=== PATIENT | male | born 1960 | race African-American/Black ===

== ENCOUNTER 2019-08-31 09:04 | Outpatient (CLI) | payer BC, MEDICARE, SELFPAY ==
--- NOTE | 2019-08-31 09:35 | ECG_ITS ---
Measurements Intervals [place] Rate: 53 P: -16 [place]: 191 QRS: -31 QRSD: 102 T: 5 QT: 420 QTc: 395 Interpretive Statements SINUS BRADYCARDIA LEFT AXIS DEVIATION CANNOT RULE OUT SEPTAL INFARCT, AGE INDETERMINATE ABNORMAL ECG Electronically Signed On 08-31-2019 11:16:09 CERTIFIED PEST CONTROL TECHNICIAN by Rasheed Pringle D.O.
[2019-08-31 10:01] LABS: Prothrombin Time 12.8 Seconds (11.1-14.7)
[2019-08-31 10:09] LABS: Blood Urea Nitrogen 13 mg/dL (9-20); Calcium 9.3 mg/dL (8.4-10.2); Carbon Dioxide 26 mmol/L (22-30); Chloride 99 mmol/L (98-107); Estimated Glomerular Filt Rate > 60; Glucose 132 mg/dL (75-110); Potassium 3.8 mmol/L (3.4-5.0); Sodium 141 mmol/L (137-145)
== END 2019-08-31 09:05 | disposition home or self-care (01) ==
PROVIDERS: Visit Provider Anesthesiology
DX: N21.0 Calculus in bladder (principal); E11.9 Type 2 diabetes mellitus without complications; I10 Essential (primary) hypertension; R00.1 Bradycardia, unspecified; I25.2 Old myocardial infarction; R94.31 Abnormal electrocardiogram [ECG] [EKG]; Z79.899 Other long term (current) drug therapy; Z79.82 Long term (current) use of aspirin; Z79.84 Long term (current) use of oral hypoglycemic drugs
CPT/HCPCS: 36415; 80048; 85610; 85730; 93005

== ENCOUNTER 2019-09-05 01:30 | Day surgery (SDC) | payer BC, MEDICARE, SELFPAY ==
[2019-08-26 13:05] VITALS: BMI 31.3
--- NOTE | 2019-09-02 07:41 | PM.HPGS ---
History of Present Illness History of Present Illness Consent: Risks, benefits, and alternatives have been discussed and questions answered. Patient agrees to proceed with procedure. Chief complaint: Kidney Stones Narrative: Casimiro Wilhelm is a 59 year old male who is s/p robotic prostatectomy in 05/2016 recently evaluated for gross hematuria and found to have 1.5cm bladder stone on CT-abd/pelvis. He denies recurrent UTI. Review of Systems Constitutional: Constitutional: Denies chills, Denies fatigue, Denies fever(s) and Denies headache(s) Eyes: Eyes: Denies blurry vision ENT: Denies vertigo, Denies dizziness, Denies headache(s) and Denies sore throat Cardiovascular: Cardiovascular: Denies chest pain, Denies syncope, Denies lightheadedness, Denies palpitations, Denies dyspnea and Denies dyspnea on exertion Respiratory: Respiratory: Denies hemoptysis, Denies dyspnea and Denies dyspnea on exertion Gastrointestinal: Gastrointestinal: Denies melena, Denies bloating, Denies hematochezia, Denies change in bowel habits, Denies change in stool character, Denies constipation, Denies diarrhea and Denies vomiting Genitourinary: Genitourinary: Denies hematuria, Denies dysuria, Denies testicular pain, Denies urinary frequency, Denies urinary hesitancy and Denies urinary urgency Integumentary/Breasts: Skin/Breast: Denies pruritus, Denies lesions and Denies rash Neurologic: Denies confusion, Denies vertigo, Denies dizziness, Denies syncope and Denies headache(s) Psychiatric: Psychiatric: Denies anxiety, Denies change in appetite and Denies confusion Endocrine: Endocrine: Denies fatigue and Denies palpitations PMFSH Social History Social History Gender identity (if verbalized by the patient): Male Meds Home Medications and Allergies Home Medications Medication Instructions Recorded Confirmed Type amlodipine 10 mg PO DAILY 08/26/19 08/26/19 History aspirin [Kamille Chewable Aspirin] 81 mg PO DAILY 08/26/19 08/26/19 History atorvastatin [Lipitor] 20 mg PO HS 08/26/19 08/26/19 History dicyclomine 20 mg PO TID 08/26/19 08/26/19 History doxazosin 2 mg PO HS 08/26/19 08/26/19 History insulin detemir U-100 [Levemir 20 unit SUBCUT HS 08/26/19 08/26/19 History U-100 Insulin] lisinopril 40 mg PO DAILY 08/26/19 08/26/19 History metformin 500 mg PO BID 08/26/19 08/26/19 History nebivolol [Bystolic] 20 mg PO HS 08/26/19 08/26/19 History nitroglycerin 0.3 mg SUBLINGUAL Q5M PRN 08/26/19 08/26/19 History omeprazole 40 mg PO DAILY 08/26/19 08/26/19 History oxybutynin chloride 5 mg PO HS 08/26/19 08/26/19 History ranolazine 500 mg PO Q12H 08/26/19 08/26/19 History sertraline 100 mg PO DAILY 08/26/19 08/26/19 History spironolacton-hydrochlorothiaz 1 tablet PO DAILY 08/26/19 08/26/19 History sucralfate 1 g PO DAILY 08/26/19 08/26/19 History tamsulosin 4 mg PO DAILY 08/26/19 08/26/19 History Exam Const: General: healthy appearing, comfortable, no acute distress and well developed; No confusion Nutritional Appearance: well nourished Orientation/consciousness: patient oriented x3 and No confusion HENMT: Head: normocephalic and atraumatic Ears: external ears normal Face and sinus: normal facial exam Mouth: Yes lip normal Teeth and gingiva: dentition normal Eyes: General: appearance normal, both eyes and all related structures Alignment and Position: alignment normal Eyelids: eyelids normal Cornea: corneas normal Pupils: Equal, round and reactive pupils present EOM: EOMs intact bilaterally Neck: Neck: normal visual inspection, full ROM and no JVD Chest: Chest palpation & inspection: normal inspection of the chest Resp: Effort & Inspection: normal respiratory effort and no use of accessory muscles Auscultation: clear to auscultation bilaterally Cardio: Jugular venous distension: no JVD Rate: regular rate Rhythm: regular rhythm GI: Inspection: normal to inspection GI Palp: N
[2019-09-05] VITALS (7 sets, daily range): BP systolic 109–155; BP diastolic 63–86; PULSE 57–73; RESP 17–20; TEMP 36.5–36.6; O2SAT 97–100
--- NOTE | 2019-09-05 06:50 | WPDHPUPDATE1 ---
History and Physical Update Update Date/Time: 09/05/19 06:50 History and Physical has been reviewed, including an updated exam of the patient. There are NO changes in the patient's condition. Risks, benefits, and alternatives have been discussed and questions answered. Patient agrees to proceed with procedure.
[2019-09-05] MEDS: LACTATED RINGERS 1,000 ML 30 ML IV CONT ×2 (10:39→12:54)
[2019-09-05 10:41] LABS: Glucose Point of Care 96 (65-105)
--- NOTE | 2019-09-05 11:00 | WPDANESEPPF ---
Anes - Initial Pre Proc Eval Procedure: Operation Date: 09/05/19 12:15 Proposed Procedures p Cystoscopy, Extraction Of Bladder Stone - Matthew Segovia MD s Holmium Laser Lithotripsy - Matthew Segovia MD Date/Time: 09/05/19 11:00 Surgeon: Matthew Segovia MD Pre Op Diagnosis: Kidney Stones Patient Data Age: 59 Gender: M Height: 5 ft 10 in Weight: 95.7 kg Last Vital Signs Temp 36.6 C 09/05/19 10:44 Pulse 57 L 09/05/19 10:44 Resp 20 09/05/19 10:44 BP 137/79 09/05/19 10:44 Pulse Ox 100 09/05/19 10:44 Allergies Allergy/AdvReac Type Severity Reaction Status Date / Time banana Allergy Severe Swelling Verified 09/05/19 10:43 of Lip/Tongue/Throat nut - unspecified Allergy Intermediate Nose Bleed Verified 09/05/19 10:43 Home Medications Medication Instructions Recorded Confirmed Type amlodipine 10 mg PO DAILY 08/26/19 09/05/19 History aspirin [Kamille Chewable Aspirin] 81 mg PO DAILY 08/26/19 09/05/19 History atorvastatin [Lipitor] 20 mg PO HS 08/26/19 09/05/19 History dicyclomine 20 mg PO TID 08/26/19 08/26/19 History doxazosin 2 mg PO HS 08/26/19 08/26/19 History insulin detemir U-100 [Levemir 20 unit SUBCUT HS 08/26/19 08/26/19 History U-100 Insulin] lisinopril 40 mg PO DAILY 08/26/19 08/26/19 History metformin 500 mg PO BID 08/26/19 09/05/19 History nebivolol [Bystolic] 20 mg PO HS 08/26/19 09/05/19 History nitroglycerin 0.3 mg SUBLINGUAL Q5M PRN 08/26/19 08/26/19 History omeprazole 40 mg PO DAILY 08/26/19 08/26/19 History oxybutynin chloride 5 mg PO HS 08/26/19 08/26/19 History ranolazine 500 mg PO Q12H 08/26/19 09/05/19 History sertraline 100 mg PO DAILY 08/26/19 09/05/19 History spironolacton-hydrochlorothiaz 1 tablet PO DAILY 08/26/19 08/26/19 History sucralfate 1 g PO DAILY 08/26/19 08/26/19 History tamsulosin 4 mg PO DAILY 08/26/19 09/05/19 History Laboratory Tests 09/05/19 10:38 POC Capillary Glucose 96 mg/dl mg/dl (65-105) Patient hx anesthesia problems: none Family hx anesthesia problems: none PMFSH Past Medical History Medical History Anxiety Diabetes GERD (gastroesophageal reflux disease) Hyperlipidemia Hypertension Social History Social History Gender identity (if verbalized by the patient): Male Anes - Eval Final PreProcedure Day of Procedure 09/05/19 11:00 Patient weight: obese Heart: regular rate and rhythm Lungs: clear to auscultation Airway: Mallampati scale class II Neurological: alert and oriented Last oral intake: >/= 8 hours ASA classification: III Emergent: no Anesthetic plan: proceed Anesthesia type and monitoring: general LMA and standard monitoring Informed Consent: The patient's anesthetic plan and its attendant risks and benefits were discussed with the patient/family/POA. Questions were solicited and answers provided to the satisfaction of the patient/family/POA.
[2019-09-05] MEDS: ceFAZolin 2 GM/D5W 50 ML 2 GM/50 ML BAG IVPB (11:52)
--- NOTE | 2019-09-05 13:08 | P.OP_ITS ---
Procedure Note - Detailed Date of procedure: 09/05/19 Pre-op diagnosis: Kidney Stones Post-op diagnosis: same Procedure performed: Laser lithotripsy/extraction bladder stone Description of procedure: The patient is brought to the operative suite where he was prepped and draped in a routine sterile fashion while in the dorsal lithotomy position after the uneventful induction of a general anesthetic. A 21F rigid cystoscope was placed in his bladder. He has no urethral strictures but and evidence of prior TURP. He has a[no median lobe enlargement with an estimated prostatic urethral length of approximately 1.5cm. He has a bladder calculi measuring approximately 5-6cm each . Using a 1000 micron holmium laser fiber laser these stones are fractured into smaller particles. The particles are evacuated through a the cystoscope sheath using both the [employer] evacuator and by direct extraction with the loop electrode. There is no significant hematuria so I opted not to leave an indwelling catheter. The patient was taken to the recovery room having tolerated the procedure well. Anesthesia: GLMA Surgeon: Matthew Segovia MD Estimated blood loss (mL): 0 Drains: No Packing: No Pathology: yes Complications: No immediate complications Condition: stable Disposition: PACU
[2019-09-05 13:10] LABS: Glucose Point of Care 119 (65-105)
--- NOTE | 2019-09-05 13:52 | SUR.PHASEII ---
1340; PT AWAKE AND ALERT. TALKATIVE. SPOUSE AT BEDSIDE.
== END 2019-09-05 14:30 | disposition home or self-care (01) ==
PROVIDERS: PCP Family Medicine; Visit Provider Urology
PROC: (CPT 52352; principal; 2019-09-05 12:15)
PROC: (CPT 52317; 2019-09-05 12:15)
DX: N21.0 Calculus in bladder (principal); I10 Essential (primary) hypertension; E78.5 Hyperlipidemia, unspecified; E11.9 Type 2 diabetes mellitus without complications; K21.9 Gastro-esophageal reflux disease without esophagitis; F41.9 Anxiety disorder, unspecified; Z79.84 Long term (current) use of oral hypoglycemic drugs; Z79.4 Long term (current) use of insulin; Z79.82 Long term (current) use of aspirin; E66.9 Obesity, unspecified; Z68.30 Body mass index [BMI] 30.0-30.9, adult
CPT/HCPCS: 52317; 82365; 88300; A9270; J0690; J2250; J2370; J2405; J2704; J3010; J7120

== ENCOUNTER 2025-05-12 12:26 | Outpatient (CLI) | payer MEDICARE, BC, SELFPAY ==
--- NOTE | ~2025-05-12 | PE_ITS ---
EXAMINATION: PET_PETPSMAST_PT DATE: 05/12/2025 15:34 INDICATION: Prostate cancer. TECHNIQUE: 5.518 mCi of Ga-68 gozetotide was administered intravenously. Low dose computed tomography (CT) images were acquired from the base of the brain to the proximal thighs for attenuation correction and anatomic localization. Automated exposure control was employed. Dose-length product (DLP) was 1166 mGy- cm. Positron emission tomography (PET) images were acquired in the same distribution. COMPARISON: CT abdomen and pelvis 07/29/2019 FINDINGS: Head/neck: There are no pathologically enlarged lymph nodes. Chest: There is no pneumonia or pleural effusion. The heart size is normal. No pericardial effusion. There is bilateral gynecomastia. Abdomen/pelvis/proximal thighs: A calcifications in the liver is consistent with old granulomatous disease. The gallbladder, spleen, pancreas, adrenal glands, and kidneys are normal. There is diverticulosis of the colon without evidence of diverticulitis. The appendix is normal. There are changes of prostatectomy. There are no pathologically enlarged lymph nodes. There is no free intraperitoneal fluid. There is no osseous malignancy. IMPRESSION: 1. No evidence of metastatic disease. Reviewed, dictated and finalized at location E.
--- OUTSIDE RECORDS SUMMARY | 2025-05-12 13:47 | XMS_ITS | Encounter Summary ---
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 Historical Provider [facility]YAL[facility] Final Result * CARDIOLOGY REPORT (02/11/2016 12:00 AM CDT) Anatomical Region Laterality Modality Other Narrative 02/11/2016 12:00 AM CDT Ordered by an unspecified provider. us Historical Provider [facility] ROHIT AYALA Final Result documented in this encounter Visit Diagnoses Not on filedocumented in this encounter Care Teams Patrol Lady Relationship Specialty Start Date End Date Skip Salinas MD PCP - General Family Medicine 07/17/18 Aron Juarez MD Cluster Bore Operator Cardiology 06/25/21 documented as of this encounter
--- OUTSIDE RECORDS SUMMARY | 2025-05-12 13:47 | XMS_ITS | Clinical Summary ---
Author Organization [facility] Address [address] [place] [address] Care Team Providers Care Acidizer Water Well Name Role Phone Skip Salinas MD Primary Care Provider [phone] Yifan Najera MD, Quinn Unavailable [phone] Allergies Active Allergy Reactions Criticality Noted Date Comments Banana Itching,Swelling 07/21/2015 Tongue itches and swells Denies latex allergy Lisinopril Anaphylaxis High 12/09/2020 Nuts Itching,Swelling 12/09/2020 Can eat peanut and macadamia but allergic to all others Medications aspirin EC (ASPIRIN EC) 81 MG tablet Take 1 tablet (81 mg total) by mouth daily. Active dicyclomine 20 MG tablet Take 1 tablet (20 mg total) by mouth 2 (two) times daily. Active omeprazole 40 MG capsule Take 1 capsule (40 mg total) by mouth daily. Active ranolazine ER 500 MG 12 hr tablet Take 1 tablet (500 mg total) by mouth 2 (two) times daily. Active sertraline 100 MG tablet Take 1.5 tablets (150 mg total) by mouth daily. Active spironolactone- hydroCHLOROthia zide 25-25 MG tablet Take 1 tablet by mouth daily. Active amLODIPine 10 MG tablet Take 1 tablet (10 mg total) by mouth daily. At noon Active hydrALAZINE 25 MG tablet Take 1 tablet (25 mg total) by mouth 3 (three) times daily. 0 Active EPINEPHrine 0.3 MG/0.3ML injection Inject 0.3 mg into the muscle as needed for Anaphylaxis. 0 Active magnesium oxide 400 MG tablet Take 1 tablet (400 mg total) by mouth daily. 1 Active atorvastatin 20 MG tablet Take 1 tablet (20 mg total) by mouth nightly at bedtime. Active nebivolol (BYSTOLIC) 5 MG tablet Take 4 tablets (20 mg total) by mouth nightly. Active metFORMIN 500 MG tablet Take 1 tablet (500 mg total) by mouth 2 (two) times daily. 0 Active oxybutynin XL 10 MG 24 hr tablet Take 1 tablet (10 mg total) by mouth nightly. 0 Active insulin detemir 100 UNIT/ML flextouch PEN Inject 30 Units into the skin nightly. Active nitroglycerin 0.[address] 1 tablet (0.4 mg total) under the tongue as needed. 1 Active diazePAM 5 MG tablet Take 1 tablet (5 mg total) by mouth every 8 (eight) hours as needed. Active traZODone 50 MG tablet Take 1 tablet (50 mg total) by mouth nightly. 0 Active PREVIDENT 5000 PLUS 1.1 % Cream BRUSH WITH TOOTHPASTE BEFORE BED. DO NOT EAT OR DRINK ANYTHONG FOR 1/2 HOUR AFTER BRUSHING 2 Active multi vitamin/mineral s (CENTRUM ADULTS) tablet 2 Active hydrocortisone 2.5 % ointment APPLY TOPICALLY TWICE DAILY FOR 2 TO 3 WEEKS 1 Active albuterol sulfate HFA 108 (90 Base) MCG/ACT inhaler INHALE 2 PUFFS EVERY 4 HOURS NEEDED FOR WHEEZING OR SHORTNESS OF BREATH 1 Active doxazosin (CARDURA) 4 MG tablet Take 1 tablet (4 mg total) by mouth nightly. 4 Active Fluticasone-Ume clidin-Vilant (TRELEGY ELLIPTA) 200-62.5-25 MCG/ACT AEROSOL POWDER, BREATH ACTIVATED Inhale 1 puff into the lungs daily. 5 Active montelukast (SINGULAIR) 10 MG tablet Take 1 tablet (10 mg total) by mouth daily. 4 Active tirzepatide (MOUNJARO) 2.5 MG/0.5ML injection Inject 2.5 mg into the skin every 7 days. Taken on Mondays 4 Active HYDROcodone-jarrod taminophen (NORCO) 7.5-325 MG tabletIndicatio ns:Acute Pain < 7 Day Supply Take 1 tablet by mouth every 6 (six) hours as needed. Indications: Acute Pain < 7 Day Supply 15 tablet 5 Active naloxone (NARCAN) 4 MG/0.1ML nasal spray 1 spray by Nasal route as needed for Opioid reversal. may repeat every 2 to 3 minutes in alternating nostrils until medical assistance becomes available 1 each 5 10/18/19 26 Active Active Problems No known active problems Immunizations Immunization Administration Dates Next Due PFIZER COVID-19 (ORIGINAL FO RMULATION, PURPLE CAP) mRNA, LNP-S, PF, 30 MCG/0.3 ML DOSE 11/12/2020,10/23/2020 Family History Medical History Relation Comments Depression Maternal Aunt Diabetes Maternal Aunt Hyperlipidemia Maternal Aunt Hypertension Maternal Aunt Arthritis Mother Cancer Mother Depression Mother Diabetes Mother Hyperlipidemia Mother Hypertension Mother Mental Health Mother Miscarriages / Stillbirths Mother Vision loss Mother Relation Status Comments Maternal Aunt Mother Alive Social History Tobacco Use Types Packs/Day Years Used Date Smoking Tobacco: Former Cigarettes 0.3 34 0 12/09/1977 - 12/10/2011 Smokeless Tobacco: Never Comments:1 pack would last a month- quit 2011 Alcohol Use Standard Drinks/Week Comments Yes 6.7 (1 standard drink = 0.6 oz p ure alcohol) 1 beer during holidays PHQ-2 Answer Date Recorded PHQ-2 Score - If the patient scores above 3, please move on to questions 3-9 0 11/18/2021 Sex and Gender Information Value Date Recorded Sex Assigned at Male 10/17/2024 7:09 AM CDT Legal Sex Male 8:05 PM CDT Gender Identity Not on file Sexual Orientation Not on file Last Filed Vital Signs Vital Sign Reading Time Taken Comments Blood Pressure 169/90 10/17/2024 1:20 PM CDT Pulse 54 10/17/2024 1:20 PM CDT Temperature 36.3 C (97.4 F) 10/17/2024 1:20 PM CDT Respiratory Rate 16 10/17/2024 1:20 PM CDT Oxygen Saturation 97% 10/17/2024 1:20 PM CDT Inhaled Oxygen Concentration - - Weight 92.2 kg (203 lb 4.2 oz) 10/17/2024 8:13 A M CDT Height 177.8 cm (5' 10) 10/17/2024 8:13 AM CDT Body Mass Index 29.17 10/17/2024 8:13 AM CDT Plan of Treatment Health Maintenance Due Date Last Done Comments Colorectal Cancer Screening Colonoscopy (10 Years) 1960 Annual Physical 1963 Hepatitis C 1978 Zoster Vaccines (1 of 2) 2010 DTaP, Tdap and Td Vaccines ( 1 - Tdap) 11/06/2014 11/05/2014 Pneumococcal Vaccine: 50+ Years (2 of 2 - PCV) 06/05/2017 06/05/2016 COVID-19 Vaccine (4 - 2024-2 6 season) 2025 08/04/2021, 11/12/2020, 10/23/2020 Influenza Adult (#1) 2025 RSV Immunization or 60+ Years (1 - 1-dose 75+ series) 2035 Hepatitis A Vaccines Aged Out No long er eligible based on patient's age to complete this topic Meningococcal B Vaccine Aged Out No l onger eligible based on patient's age to complete this topic Meningococcal Vaccine Aged Out No kyle beatrice eligible based on patient's age to complete this topic RSV Immunizations Under 20 Months Aged Out No longer eligible b ased on patient's age to complete this topic Insurance [facility] MEDICARE Advance Directives * Full Code (Latest Code Status on File) Date Activated Date Inactivated Comments 01/29/2021 11:04 AM 01/29/2021 2:21 PM Care Teams Acidizer Water Well Relationship Specialty Start Date End Date Skip Salinas MD [address] [place] [address] PCP - General 08/10/15 Kai Saha MD [address] [facility] [place] [address] INTERNAL MEDICINE 10/10/24
--- OUTSIDE RECORDS SUMMARY | 2025-05-12 13:47 | XMS_ITS | Encounter Summary ---
Author Organization [facility] Address [address] [place] [address] Care Team Providers Care Auto Leasing Manager Name Role Phone Skip Salinas MD Primary Care Provider [phone] Yifan Najera MD, Quinn Unavailable [phone] Encounter Details Date Type Department Care Team (Late st Contact Info) Description 10/17/2024 Prep for Procedure [facility] [place] [address] Liam Mcdermott MD [address] [place] [address] Social History Tobacco Use Types Packs/Day Years [...] on file documented as of this encounter Functional Status * Calculated C-SSRS Risk Score (Lifetime/Recent) Answer Date of Assessment Author Status No Risk Indicated 10/17/2024 8:10 AM CDT Bernarda Julian RN Active * [place] Suicide Severity Rating Scale (Screener/Recent Self-Report) Question Answer Date of Assessment Author Status 1. Wish to be (Past 1 Month) No 10/17/2024 8:10 AM CDT Kirstin Julian RN A ctive 2. Non-Specific Active Suicidal Thoughts (Past 1 Month) No 10/17/2024 8:10 AM CDT Kirstin Julian RN A ctive 6. Suicidal Behavior (Lifetime) No 10/17/2024 8:10 AM CDT Kirstin Julian RN A ctive documented as of this encounter Plan of Treatment Not on file documented as of this encounter Results * (ABNORMAL) BASIC METABOLIC PANEL (10/17/2024 7:17 AM CDT) GLUCOSE 128(H) 70 - 99 MG/DL 10/17/2024 8:33 AM CDT [facility] BUN 17 7 - 18 MG/DL 10/17/2024 8:33 AM CDT [facility] CREATININE S/P/B 1.31(H) 0.7 - 1.3 MG/DL 10/17/2024 8:33 AM CDT [facility] SODIUM S/P/B 139 136 - 145 MMOL/L 10/17/2024 8:33 AM CDT [facility] POTASSIUM S/P/B 3.3(L) 3.5 - 5.1 MMOL/L 10/17/2024 8:33 AM CDT [facility] CHLORIDE S/P/B 106 97 - 115 MMOL/L 10/17/2024 8:33 AM CDT [facility] CO2 25.0 21 - 32 MMOL/L 10/17/2024 8:33 AM CDT [facility] CALCIUM S/P/B 9.2 8.5 - 10.1 MG/DL 10/17/2024 8:33 AM CDT [facility] ANION GAP 8.0 2 - 10 MMOL/L 10/17/2024 8:33 AM CDT [facility] BUN CREATININE RATIO 13.0 6 - 26 10/17/2024 8:33 AM CDT [facility] GFR ESTIMATE 61(L) >90 ML/MIN/1.7 3 M2 10/17/2024 8:33 AM CDT [facility] Comment: NOTE: eGFR is not calculated for patients <18 years of age or gender unknown. This is an estimated GFR calculation using the new CKD EPI creatinine equation without race and so does not require a correction factor for race. This estimated GFR should not be used for calculating drug doses. 10/17/2024 7:17 AM CDT Ellie Ross [facility] Final R esult [facility] [address] [place] [address], documented in this encounter Visit Diagnoses Diagnosis Preoperative testing- Primary Preoperative examination, unspecified documented in this encounter Care Teams Auto Leasing Manager Relationship Specialty Start Date End Date Skip Salinas MD [address] [place] [address] PCP - General 08/10/15 Kai Saha MD [address] [place] [address] INTERNAL MEDICINE 10/10/24 documented as of this encounter
--- OUTSIDE RECORDS SUMMARY | 2025-05-12 13:47 | XMS_ITS | Encounter Summary ---
Author Organization [facility] Address [address] [place] [address] Care Team Providers Care Assistant Refinery Operator Name Role Phone Skip Salinas MD Primary Care Provider + [phone] Aron Juarez MD Unavailable + [phone] Yifan Najera MD, Quinn Unavailable [phone] Encounter Details Date Type Department Care Team (Late st Contact Info) Description 12/09/2020 Prep for Procedure [place] [address] [place] [id number] Casimiro Zayas, DPBernarda [address] [place] [id number] Social History Tobacco Use Types Packs/Day Years Used Date Smoking Tobacco: Former Cigarettes 0 12/09/1977 - 12/10/2011 Smokeless Tobacco: Never Comments:1 pack would last a month- quit 2011 Alcohol Use Standard Drinks/Week Comments Yes 0 (1 standard drink = 0.6 oz pur e alcohol) 1 beer during holidays Sex and Gender Information Value Date Recorded Sex Assigned at Male 10/17/2024 7:09 AM CDT Legal Sex Male 8:05 PM CDT Gender Identity Not on file Sexual Orientation Not on file COVID-19 Exposure Response Date Recorded In the last month, have you been in contact with someone who was confirmed or suspected to have Coronavirus / COVID-19? No / Unsure 12/09/2020 12:50 PM CDT documented as of this encounter Plan of Treatment Not on file documented as of this encounter Visit Diagnoses Diagnosis Preop examination- Primary Preoperative examination, unspecified documented in this encounter Care Teams Assistant Refinery Operator Relationship Specialty Start Date End Date Skip Salinas MD [address] [place] [address] PCP - General 08/10/15 Aron Juarez MD [address] [place] [address] INTERVENTIONAL CARDIOLOGY 12/09/2009/15 Kai Saha MD [address] [place] [address] INTERNAL MEDICINE 10/10/24 documented as of this encounter
--- OUTSIDE RECORDS SUMMARY | 2025-05-12 13:48 | XMS_ITS | Encounter Summary ---
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 Historical Provider Final Res ult documented in this encounter Visit Diagnoses Not on filedocumented in this encounter Care Teams Auto Vinyl Top Installer Relationship Specialty Start Date End Date Skip Salinas MD PCP - General Family Medicine 07/17/18 Aron Juarez MD Lead Rider Cardiology 06/25/21 documented as of this encounter
--- OUTSIDE RECORDS SUMMARY | 2025-05-12 13:48 | XMS_ITS | Encounter Summary ---
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 Historical Provider [facility] A[facility]AL[facility] Final Result documented in this encounter Visit Diagnoses Not on filedocumented in this encounter Care Teams Door Trimmer Relationship Specialty Start Date End Date Skip Salinas MD PCP - General Family Medicine 07/17/18 Aron Juarez MD Cloth Bleaching Range Operator Chief Cardiology 06/25/21 documented as of this encounter
--- OUTSIDE RECORDS SUMMARY | 2025-05-12 13:48 | XMS_ITS | Encounter Summary ---
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
--- OUTSIDE RECORDS SUMMARY | 2025-05-12 13:48 | XMS_ITS | Encounter Summary ---
Author Organization 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 Gender Identity Not on file Sexual Orientation Not on file documented as of this encounter Plan of Treatment Not on file documented as of this encounter Procedures Procedure Name Priority Date/Time Associated Diagnosis Comments CARDIOLOGY REPORT 06/02/2016 12: 00 AM HEATING AND VENTILATING WORKER PROCEDURE - RESULT 05/26/2016 12 :00 AM HEATING AND VENTILATING WORKER documented in this encounter Results * CARDIOLOGY REPORT (06/02/2016 12:00 AM HEATING AND VENTILATING WORKER) Anatomical Region Laterality Modality Other Narrative 06/02/2016 12:00 AM HEATING AND VENTILATING WORKER Ordered by an unspecified provider. Historical Provider [facility] AYALA Final Result * PROCEDURE - RESULT (05/26/2016 12:00 AM HEATING AND VENTILATING WORKER) Narrative 05/26/2016 12:00 AM HEATING AND VENTILATING WORKER Ordered by an unspecified provider. us Historical Provider Final Res ult documented in this encounter Visit Diagnoses Not on filedocumented in this encounter Care Teams Detailer Pharmaceuticals Relationship Specialty Start Date End Date Skip Salinas MD PCP - General Family Medicine 07/17/18 Aron Juarez MD Aircraft Ordnance Systems Mechanic Cardiology 06/25/21 documented as of this encounter
--- OUTSIDE RECORDS SUMMARY | 2025-05-12 13:48 | XMS_ITS | Encounter Summary ---
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 us Historical Provider Final Res ult * SCAN - LABS (11/27/2015 12:00 AM CDT) Narrative 11/27/2015 12:00 AM CDT Ordered by an unspecified provider. us Historical Provider Final Res ult * SCAN - LABS (11/27/2015 12:00 AM CDT) Narrative 11/27/2015 12:00 AM CDT Ordered by an unspecified provider. us Historical Provider Final Res ult documented in this encounter Visit Diagnoses Not on filedocumented in this encounter Care Teams A Auxiliary Relationship Specialty Start Date End Date Skip Salinas MD PCP - General Family Medicine 07/17/18 Aron Juarez MD Processor Helper Cardiology 06/25/21 documented as of this encounter
--- OUTSIDE RECORDS SUMMARY | 2025-05-12 13:48 | XMS_ITS | Clinical Summary ---
Author Organization [facility] at the [facility] Office Center Address [address] [place] [address] Care Team Providers Care Iron Worker Name Role Phone Skip Salinas MD Primary Care Provider + Aron Juarez MD Unavailable + [phone] Allergies Active Allergy Reactions Criticality Noted Date Comments Banana Itching,Swelling,Unknown Medium 07/21/2015 Lisinopril Angioedema High 12/09/2020 Nuts Itching,Swelling Medium 11/06/2016 Medications sertraline (ZOLOFT) 100 mg tablet Take 1.5 tablets (150 mg total) by mouth daily Active amLODIPine (NORVASC) 10 mg tablet Take 1 tablet (10 mg total) by mouth daily with lunch afternoon Active dicyclomine (BENTYL) 20 mg tablet Take 1 tablet (20 mg total) by mouth 2 (two) times a day with lunch and bedtime Active diazePAM (VALIUM) 5 mg tablet Take 1 tablet (5 mg total) by mouth every 8 (eight) hours as needed Active omeprazole (PriLOSEC) 40 mg capsule Take 1 capsule (40 mg total) by mouth daily Active spironolactone-h ydroCHLOROthiazi de (ALDACTAZIDE) 25-25 mg per tablet TAKE 1 TABLET BY MOUTH ONCE A DAY 90 tablet 3 9 Active atorvastatin (LIPITOR) 20 mg tablet Take 1 tablet (20 mg total) by mouth nightly 9 Active acetaminophen (TYLENOL) 325 mg tablet Take 2 tablets (650 mg total) by mouth every 6 (six) hours as needed for pain or fever 6 Active hydrALAZINE (APRESOLINE) 25 mg tablet Take 1 tablet (25 mg total) by mouth 3 (three) times a day 0 Active magnesium oxide (MAG-OX) 400 mg (241.3 mg elemental magnesium) tablet Take 1 tablet (400 mg total) by mouth every other day 1 Active metFORMIN (GLUCOPHAGE) 500 mg tablet Take 2 tablets (1,000 mg total) by mouth 2 (two) times a day 0 Active traZODone (DESYREL) 50 mg tablet Take 1 tablet (50 mg total) by mouth nightly 0 Active oxybutynin XL (DITROPAN-XL) 10 mg 24 hr tablet Take 1 tablet (10 mg total) by mouth nightly 0 Active aspirin 81 mg enteric coated tablet Take 1 tablet (81 mg total) by mouth daily Active insulin detemir (LEVEMIR) 100 unit/mL (3 mL) pen for injection Inject 30 Units under the skin nightly Active calcium carbonate-vitami n D3 (CALTRATE 600 + D) 1500 mg (600 mg elemental) -400 units per tablet Take 1 tablet by mouth daily Active ibuprofen (ADVIL,MOTRIN) 800 mg tablet Take 1 tablet (800 mg total) by mouth every 8 (eight) hours as needed 1 Active hydrocortisone 2.5 % ointment Apply topically 2 (two) times a day as needed for rash or irritation Active EPINEPHrine 0.3 mg/0.3 mL auto-injection syringe Inject 0.3 mL (0.3 mg total) into the muscle as instructed as needed for anaphylaxis 1 each 2 Active multivit-min/FA/ lycopen/lutein (CENTRUM SILVER MEN ORAL) Take 1 tablet by mouth daily Active gabapentin (NEURONTIN) 100 mg capsule Take 1 capsule (100 mg total) by mouth as directed 3 Active ipratropium-albu teroL (Combivent Respimat) 20-100 mcg/actuation inhalerIndicatio ns:Chronic bronchitis, simple (HCC) INHALE 1 PUFF 4 (FOUR) TIMES A DAY NEEDED FOR WHEEZING OR SHORTNESS OF BREATH 4 g 2 07/18/202 3 Active chlorthalidone 25 mg tabletIndication s:Coronary artery disease of algaaciq artery of algaaciq heart with stable angina pectoris,LAFB (left anterior fascicular block) TAKE 1/2 TABLET BY MOUTH EVERY DAY 45 tablet 1 3 Active loratadine (CLARITIN) 10 mg tabletIndication s:Non-seasonal allergic rhinitis due to other allergic trigger TAKE 1 TABLET BY MOUTH EVERY DAY 90 tablet 1 3 Active BD Ultra-Fine Short Pen Needle 31 gauge x 5/16 needle 3 Active potassium chloride (KLOR-CON) 20 mEq packet Take 1 packet (20 mEq total) by mouth 2 (two) times a day Dissolve each packet in at least 4 ounces (120 mL) of cold water or other beverage prior to administration. Active nitroglycerin (NITROSTAT) 0.[address] 1 tablet (0.4 mg total) under the tongue every 5 (five) minutes as needed for chest pain May repeat dose q 5 min, up to 3 doses total 25 tablet 2 4 Active doxazosin (CARDURA) 4 mg tabletIndication s:Coronary artery disease without angina pectoris, unspecified vessel or lesion type, unspecified whether algaaciq or transplanted heart,PVC (premature ventricular contraction) TAKE 1 TABLET BY MOUTH NIGHTLY 90 tablet 3 4 Active Mounjaro 2.5 mg/0.5 mL pen injector 4 Active nebivoloL (BYSTOLIC) 10 mg tablet Take 1 tablet (10 mg total) by mouth daily 4 Active montelukast (SINGULAIR) 10 mg tabletIndication s:Moderate persistent asthma without complication,Non -seasonal allergic rhinitis due to other allergic trigger Take 1 tablet (10 mg total) by mouth nightly 90 tablet 2 5 Active albuterol HFA (PROVENTIL HFA,VENTOLIN HFA,PROAIR HFA) 90 mcg/actuation inhalerIndicatio ns:Chronic obstructive pulmonary disease, unspecified COPD type (HCC) Inhale 2 puffs every 4 (four) hours as needed for wheezing or shortness of breath (coughing) 18 each 3 5 Active fluticasone-umec lidin-vilanter (Trelegy Ellipta) 200-62.5-25 mcg inhalerIndicatio ns:Chronic obstructive pulmonary disease, unspecified COPD type (HCC) Inhale 1 puff daily 90 each 4 5 Active Active Problems Problem Noted Date Diagnosed Date Angio-edema 12/26/2021 LAFB (left anterior fascicular block) 10/29/2018 Atypical chest pain 10/29/2018 PVC (premature ventricular contraction) 10/30/19 19 CAD (coronary artery disease) 03/02/2016 Type 2 diabetes mellitus without complications 0 03/02/2016 Adhesive capsulitis of shoulder 02/05/2016 Cervicalgia 02/05/2016 Pain in shoulder 02/01/2016 Uncontrolled diabetes mellitus 11/26/2015 Essential (primary) hypertension 11/26/2015 Fatty liver 11/26/2015 GERD (gastroesophageal reflux disease) 6 Dyslipidemia 11/21/2015 Angina pectoris, unstable Dyspnea on exertion Encounters Date Type Department Care Team Description 03/26/2025 1:45 PM CDT Office Visit [facility] Cardiology [address] [place] [phone] Kai Saha MD Coronary artery disease of algaaciq artery of algaaciq heart with stable angina pectoris (Primary Dx); Essential (primary) hypertension; Dyslipidemia from Last 3 Months Immunizations Immunization Administration Dates Next Due Pfizer SARS-CoV-2 Monovalent Vaccination (12+ Yrs) PURPLE 11/12/2020,10/23/2020 Pneumococcal Polysaccharide PPV23 06/05/2016 Td, adsorbed 11/05/2014 Surgical History Surgery Date Site/Laterality Comments FOOT SURGERY 01/29/2021 Bilateral Arthroplasty 4th Toe Left Foot and Tenotomy, Capsulotomy 5th Toe Bilateral INGUINAL HERNIA REPAIR 07/17/2011 - 07/16/2012 Bilateral PROSTATECTOMY 05/31/2016 CARDIAC CATHETERIZATION 10/13/2015 KNEE ARTHROSCOPY 07/17/2005 - 07/16/2006 Right KNEE ARTHROSCOPY 07/17/2007 - 07/16/2008 Left COLONOSCOPY 07/17/2009 - 07/16/2010 ANGIOPLASTY 06/29/2021 Right SEAL DEVICE INSERTION Medical History Medical History Date Comments Dyslipidemia Essential hypertension Acid reflux Adenocarcinoma of prostate (HCC) 2015 Depression Obesity (BMI 30-39.9) Rash of groin 06/25/2021 Left Kidney stone on left side 04/07/2017 Hepatomegaly 04/07/2017 Hepatic steatosis 04/07/2017 Hiatal hernia 04/07/2017 Teeth missing Coronary artery disease Insulin-treated type 2 diabetes mellitus (HCC) Diverticulitis of colon Atypical chest pain Shortness of breath on exertion Seasonal allergic rhinitis Anxiety Pneumonia 1995 Concentric left ventricular hypertrophy 04/06/20 18 Left atrial dilation 04/06/2018 Mitral valve regurgitation 04/06/2018 Tricuspid valve regurgitation 04/06/2018 Pulmonary valve regurgitation 04/06/2018 Family History Medical History Relation Name Comments Hypertension Brother 1 Family history of hypertension - (Added by TW Conv) Heart disease Brother 2 Family history of cardiac disorder - (Added by TW Conv) Seizures Mother Family history of seizure disorder - (Added by TW Conv) Relation Name Status Comments Brother 1 Brother 2 Mother Social History Tobacco Use Types Packs/Day Years Used Date Smoking Tobacco: Former Cigarettes 0.5 40 1 2021 Pipe Cigars Smokeless Tobacco: Never Alcohol Use Standard Drinks/Week Comments Yes 0 (1 standard drink = 0.6 oz pur e alcohol) socially, rarely - beer AUDIT-C Answer Date Recorded Frequency of Alcohol Consumption Not on file 04/11/2022 Q2: How many drinks containi ng alcohol do you have on a typical day when you are drinking? 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 Gender Identity Not on file Sexual Orientation Not on file Obstetrics History Last Filed Vital Signs Vital Sign Reading Time Taken Comments Blood Pressure 116/66 03/26/2025 1:52 PM CDT Pulse 66 03/26/2025 1:52 PM CDT Temperature 36.5 C (97.7 F) 12/17/2024 1:47 PM CDT Respiratory Rate 18 12/17/2024 1:47 PM CDT Oxygen Saturation 98% 12/17/2024 1:47 PM CDT Inhaled Oxygen Concentration - - Weight 90.9 kg (200 lb 4.8 oz) 03/26/2025 1:52 P M CDT Height 177.8 cm (5' 10) 03/26/2025 1:52 PM CDT Body Mass Index 28.74 03/26/2025 1:52 PM CDT Plan of Treatment Health Maintenance Due Date Last Done Comments Albumin Creatinine Ratio, Urine 1960 Colon Cancer Screening-Colonoscopy 1960 Depression Screening 1960 Hepatitis C Screening 1960 Dilated Eye Exam 1960 Foot Exam 1960 Hepatitis B Screening 1978 Regular Well Visit/Exam 18-64 1978 Zoster Vaccine (1 of 2) 2010 DTaP/Tdap/Td Vaccine (1 - Tdap) 11/06/2014 5 Pneumococcal vaccine <65 (2 of 2 - PCV) 06/05/2017 06/05/2016 Prostate Cancer Screening-PSA 07/18/2021, 11/23/2016, 11/27/2015, Additional history exists Hemoglobin A1C 09/15/2022 03/18/2022, 04/21/2015 Covid-19 Vaccine (4 - 2024-2 6 season) 2025 08/04/2021, 11/12/2020, 10/23/2020 Influenza Vaccine (#1) 2025 Lipid Panel 09/28/2025 09/28/2024, 01/15, 08/22/2023, Additional history exists Lung Cancer Screening 11/19/2025 11/18/2024 eGFR 12/04/2025 12/04/2024, 09/14, 02/05/2024, Additional history exists Medical Devices Implanted Type Area Eddy Current Inspector Device Identifier Shelf Expiration Date Model / Serial / Lot Photos to Photos Geraldine [id number] Device Closure Angio-Seal Vip Bondek-Plus Polyglyd L70 Cm Od6 Fr Odsec.035 In Vascular - [id number] Implanted:Qty: 1 on 06/29/2021 by Aron Juarez MD at 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 73 m2 Comment: Interpretive Data Reference Interval Normal >/= 90 mL/min/1.73m2 Mildly decreased* 60 - 89 mL/min/1.73m2 Mildly to moderately decreased 45 - 59 mL/min/1.73m2 Moderately to severely decreased 30 - 44 mL/min/1.73m2 Severely decreased 15 - 29 mL/min/1.73m2 Kidney Failure < 15 mL/min/1.73m2 *Relative to young adult level Estimated glomerular filtration rate is determined by the 2020 CKD-EPI equation recommended by the National Kidney Foundation (A Unifying Approach to GFR Estimation: Recommendations of the NKF-ASK Task Force on Reassessing the Inclusion of Race in Diagnosing Kidney Disease, JASN 2020). The CKD-EPI equation should not be used for patients with unstable renal function and has not been validated in children and those over 70. Current interpretive data was last reviewed 2021. Blood 12/04/2024 6:35 AM CDT 12/04/2024 6:48 AM CDT us Skip Salinas MD LAB BLOOD ORDERABLES Fin al Result [id number] [address] [facility] Department [place] [address] [phone] * CT Lung Cancer Screening (11/18/2024 2:50 PM CDT) Anatomical Region Laterality Modality Chest N/A Computed Tomogra phy 11/28/2024 7:46 AM CDT Narrative 11/28/2024 7:53 AM CDT EXAM DESCRIPTION: CT LUNG CANCER SCREENING REASON FOR STUDY: Screening CT of the chest in a former smoker with a 81 pack year smoking history. Additional history: History of prostate cancer.. TECHNIQUE: Low dose CT scan of the chest was performed without intravenous contrast using helical scanning technique. The exam extends from the lung apices through the lung bases. Automatic exposure control was used as a dose optimization technique. NOTE: This study was performed for the specific purposes of lung cancer screening and is not an alternative to diagnostic chest CT. RADIATION DOSE: CT dose index volume (CTDIvol) = 1.77 mGy COMPARISON: 07/21/2021 FINDINGS: SMOKING RELATED LUNG DISEASE: There are minimal to mild emphysematous changes of lungs with scattered mild subsegmental atelectasis and scarring. There is no definite evidence of a pneumothorax. The central airways are grossly patent. There is no definite evidence of a focal consolidation or pleural effusion. There are scattered calcified granulomas noted. LUNG NODULES: There is a grossly stable subtle 0.3 cm perivascular nodule in the posterior central left lower lobe (axial image 181). CORONARY ARTERY CALCIFICATION: Present. OTHER: The heart size is stable. There is no definite evidence of a pericardial effusion. There are atherosclerotic changes of the thoracic aorta and coronary vessels. There is dilatation of main pulmonary artery measuring up to 3.8 cm, which is concerning for pulmonary arterial hypertension. There is no definite unenhanced CT evidence of mediastinal, hilar, or axillary lymphadenopathy. There are scattered subcentimeter mediastinal lymph nodes noted with largest measuring 0.6 cm in the subcarinal region (axial image 141). There is bilateral gynecomastia The bilateral adrenal glands are grossly stable and unremarkable. There are couple of calcified granulomas noted in the liver. There is a minimal S shaped scoliotic curvature of the spine with degenerative changes. IMPRESSION: Grossly stable small left lower lobe pulmonary nodule measuring 0.3 cm. No definite evidence of a new suspicious pulmonary nodule. Minimal to mild emphysematous changes of lungs with scattered mild subsegmental atelectasis and scarring. Lung-RADS category 2: Benign appearance or behavior. Recommendation: Low dose Screening CT of chest in 12 months. THIS IS AN ELECTRONICALLY VERIFIED FINAL REPORT 11/28/2024 7:53 AM - Electronically signed by Ginger ALTAMIRANO T: Report ID: [id number] Reading Location: [place] [address] Procedure Note Ginger Jasso, DO - 11/28/2024 EXAM DESCRIPTION: CT LUNG CANCER SCREENING REASON FOR STUDY: Screening CT of the chest in a former smoker with a81 pack year smoking history. Additional history: History of prostatecancer.. TECHNIQUE: Low dose CT scan of the chest was performed without intravenous contrast using helical scanning technique. The exam extends from the lung apices through the lung bases. Automatic exposure control was used as adose optimization technique. NOTE: This study was performed for the specific purposes of lung cancer screening and is not an alternative to diagnostic chest CT. RADIATION DOSE: CT dose index volume (CTDIvol) = 1.77 mGy COMPARISON: 07/21/2021 FINDINGS: SMOKING RELATED LUNG DISEASE: There are minimal to mild emphysematous changes of lungs with scattered mild subsegmentalatelectasis and scarring. There is no definite evidence of a pneumothorax. Thecentral airways are grossly patent. There is no definite evidence of a focal consolidation or pleural effusion. There are scattered calcifiedgranulomas noted. LUNG NODULES: There is a grossly stable subtle 0.3 cm perivascularnodule in the posterior central left lower lobe (axial image 181). CORONARY ARTERY CALCIFICATION: Present. OTHER: The heart size is stable. There is no definite evidence of a pericardial effusion. There are atherosclerotic changes of the thoracicaorta and coronary vessels. There is dilatation of main pulmonary arterymeasuring up to 3.8 cm, which is concerning for pulmonary arterial hypertension. There is no definite unenhanced CT evidence of mediastinal, hilar, oraxillary lymphadenopathy. There are scattered subcentimeter mediastinal lymphnodes noted with largest measuring 0.6 cm in the subcarinal region (axial image 141). There is bilateral gynecomastia The bilateral adrenal glands are grossly stable and unremarkable. Thereare couple of calcified granulomas noted in the liver. There is a minimal S shaped scoliotic curvature of the spine withdegenerative changes. IMPRESSION: Grossly stable small left lower lobe pulmonary nodule measuring 0.3 cm.No definite evidence of a new suspicious pulmonary nodule. Minimal to mild emphysematous changes of lungs with scattered mild subsegmental atelectasis and scarring. Lung-RADS category 2: Benign appearance or behavior. Recommendation: Low dose Screening CT of chest in 12 months. THIS IS AN ELECTRONICALLY VERIFIED FINAL REPORT 11/28/2024 7:53 AM - Electronically signed by Ginger Jasso D.O. PS T: Report ID: [id number] Reading Location: [place] [address] us Renetta Miller MD IMG CT PROCEDURES Final Resul t * Lipid panel (09/28/2024 6:20 AM CDT) Cholesterol 189 30 - 199 mg/dL Comment: Interpretive Data Ages < or = 19 years Acceptable: <170 mg/dL Borderline high: 170-199 mg/dL High: >or= 200 mg/dL Ages > or = 20 years Desirable: <200 mg/dL Borderline high: 200-239 mg/dL High: >or= 240 mg/dL Literature References: 1. Expert Panel on Integrated Guidelines for Cardiovascular Health and Risk Reduction in Children and Adolescents. Pediatrics 2011;128:S213 2. NCEP Expert Panel. Circulation 2004;110:227 Current Interpretive Data was last revised on 2018. Triglycerides 68 <=149 mg/dL RAMIRO MORAN Comment: Interpretive Data Ages < or = 9 years Acceptable: <75 mg/dL Borderline high: 75-99 mg/dL High: >or= 100 mg/dL Ages 10 to 20 years Acceptable: <90 mg/dL Borderline high: 90-129 mg/dL High: >or= 130 mg/dL Ages > or = 20 years Desirable: <150 mg/dL Borderline high: 150-199 mg/dL High: 200-499 mg/dL Very high: >or= 499 mg/dL Literature References: 1. Expert Panel on Integrated Guidelines for Cardiovascular Health and Risk Reduction in Children and Adolescents. Pediatrics 2011;128:S213 2. NCEP Expert Panel. Circulation 2004;110:227 Current Interpretive Data was last revised on 2018. HDL 49 >=40 mg/dL RAMIRO Comment: Interpretive Data Ages < or = 19 years Acceptable: >45 mg/dL Borderline low: 40-45 mg/dL Low: <40 mg/dL Ages > or = 20 years Desirable: >or= 60 mg/dL Low: <40 mg/dL Literature References: 1. Expert Panel on Integrated Guidelines for Cardiovascular Health and Risk Reduction in Children and Adolescents. Pediatrics 2011;128:S213 2. NCEP Expert Panel. Circulation 2004;110:227 Current Interpretive Data was last revised on 2018. LDL, calculated 127 <=129 mg/dL RAMIRO MORAN Comment: Interpretive Data Ages < or = 19 years Acceptable: <110 mg/dL Borderline high: 110-129 mg/dL High: >or= 130 mg/dL Ages > or = 20 years Optimal: <100 mg/dL Near optimal: 100-129 mg/dL Borderline high: 130-159 mg/dL High: >160 mg/dL Calculated using the Jaun LDL-C estimating equation. This equation was implemented on 2024. Prior to this date LDL-C was estimated using the Friedewald equation. Literature References: 1. Expert Panel on Integrated Guidelines for Cardiovascular Health and Risk Reduction in Children and Adolescents. Pediatrics 2011;128:S213 2. NCEP Expert Panel. Circulation 2004;110:227 3. Jaun Menchaca et al. SUSANNA Cardiol. 2019November 14;5(5):540-548. doi: 10.1001/[email or web address] Current Interpretive Data was last revised on 2024. Non-HDL Cholesterol 140 mg/dL RAMIRO Comment: Interpretive Data Ages < or = 19 years Acceptable: <120 mg/dL Borderline high: 120-144 mg/dL High: >145 mg/dL Ages > or = 20 years When triglycerides are >200 mg/dL, Non-HDL cholesterol is a secondary target of therapy with treatment goals that are 30 mg/dL greater than the LDL cholesterol target. Literature References: 1. Expert Panel on Integrated Guidelines for Cardiovascular Health and Risk Reduction in Children and Adolescents. Pediatrics 2011;128:S213 2. NCEP Expert Panel. Circulation 2004;110:227 Current Interpretive Data was last revised on 2018. Chol/HDL ratio 4 [facility] Blood 09/28/2024 6:20 AM CDT 09/28/2024 8:12 AM CDT Kai Saha MD LAB BLOOD ORDERABLES Final Result Performing Organization Address [facility] de Phone Number [address] [address] * (ABNORMAL) Hemoglobin A1c (03/18/2022 6:38 AM CDT) Pathologist [facility] Hgb A1C 8.7(H) 4.0 - 5.6 % [facility] Estimated Average Glucose 203 mg/dL [facility] Comment: The ADA recommends reporting an estimated Average Glucose (eAG) with all Hemoglobin A1c results using the equation derived from a study of 507 normal and diabetic adults. Minority populations were underrepresented and children were not included. (Diabetes Care 31:3025-2973, 2007). The eAG is not equivalent to a fasting glucose. Blood 03/18/2022 6:38 AM CDT 03/18/2022 6:53 AM CDT Aron Juarez MD LAB BLOOD ORDERABLES F inal Result Performing Organization Address [facility] Co de Phone Number [address] [address] * PSA screen (07/18/2019 6:57 AM REVENUE CYCLE SPECIALIST) [facility] PSA Screen <0.1 0.0 - 3.9 ng/mL [facility] Comment: Method: ECLIA Values obtained by different assay methods cannot be used interchangeably. Use sequential testing to confirm baseline if assay method changed during patient monitoring. 07/18/2019 6:57 AM REVENUE CYCLE SPECIALIST 07/18/2019 6:59 AM REVENUE CYCLE SPECIALIST Narrative [facility] - 07/18/2019 8:16 AM REVENUE CYCLE SPECIALIST CLEAN CATCH URINE Resulting Agency Comment CLI Skip Salinas MD LAB BLOOD ORDERABLES Fin al Result [address] [address], [facility] [phone] from Last 3 Months or Most Recently Relevant to Health Maintenance Insurance [employer] [place] MEDICARE MEDICARE View3 [facility] Advance Directives For more information, please contact: [phone] Documents on File Type Date Recorded Patient Global Technical Writer Expl anation ADVANCE DIRECTIVE 11/12/2012 12:00 AM STEVIE Rodriguez OF RADIATION TECHNICIAN FINANCIAL/MEDICAL * Full Code (Latest Code Status on File) Date Activated Date Inactivated Comments 12/26/2021 9:40 PM 12/27/2021 4:02 PM * Full Code Date Activated Date Inactivated Comments 06/29/2021 12:48 PM 07/20/2021 2:57 PM Care Teams Iron Worker Relationship Specialty Start Date End Date Skip Salinas MD PCP - General Family Medicine 07/17/18 Aron Juarez MD Medical Staff Assistant Cardiology 06/25/21
--- OUTSIDE RECORDS SUMMARY | 2025-05-12 13:48 | XMS_ITS | Encounter Summary ---
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
--- OUTSIDE RECORDS SUMMARY | 2025-05-12 13:48 | XMS_ITS | Encounter Summary ---
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
--- OUTSIDE RECORDS SUMMARY | 2025-05-12 13:48 | XMS_ITS | Encounter Summary ---
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
--- OUTSIDE RECORDS SUMMARY | 2025-05-12 13:48 | XMS_ITS | Encounter Summary ---
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
== END 2025-05-12 12:27 | disposition home or self-care (01) ==
PROVIDERS: PCP Family Medicine; Visit Provider Urology
DX: C61 Malignant neoplasm of prostate (principal)
CPT/HCPCS: 78815; A9596